=== PATIENT | female | born 1940 | race Caucasian/White ===

== ENCOUNTER 2018-10-12 01:21 | Inpatient (IN) ==
[2018-10-12] MEDS ORDERED: Nitroglycerin 0.4 MG TAB.SUBL SL PRN (04:59)
--- NOTE | 2018-10-12 05:13 | Internal Med History&Physical ---
Date of Encounter: 10/12/18 Time of Encounter: 05:05 Internal Medicine - H&P: HPI Chief complaint: SOB, nausea, vomiting, diarrhea, chest pain History of present illness: Ms. Juarez is a 78 year old female with a past medical history of carotid stenosis, CAD status post PCI, peripheral vascular disease, hypothyroidism, hyperlipidemia, hypertension, COPD on 2 L, psoriasis and GERD who who initially presented to [facility] with a 3 day history of nausea, vomiting diarrhea, shortness of breath and chest pain. Patient states that her symptoms initially began with shortness of breath. She then began having fever, chills, cough and generalized body aches. Symptoms progressed to nausea and vomiting and diarrhea. She states she has had numerous episodes of nonbilious, nonbloody emesis with watery diarrhea. She does report noticing blood on her toilet paper intermittently after bowel movements. Denies any history of hemorrhoids. Patient does not recall when exactly however states that she is also been having intermittent chest pain which he describes as substernal, sharp, nonradiating with no aggravating or alleviating factors. She currently denies any chest pain. Patient received noting dose of aspirin at [facility]. Patient was found to be positive for influenza A and laboratory workup was notable for a mild leukocytosis, Normal Lactic Acid, and a troponin of 0.49 with the second troponin at 0.63. Patient denies any recent syncopal contacts; currently smokes half a pack a day and has been doing so up until this recent illness. She currently lives alone. Review of EKG shows more prominent T-wave in the lateral leads, however, this when compared to previous EKG in 2015. Past Med Surg Social Fam HX - Past Medical History Medical history: other Additional medical history: 2 SPOTS ON HER RIGHT LUNG Psychiatric history: anxiety - Social History Smoking Status: Former smoker Smokeless Tobacco Status: Yes Alcohol use: none Drug use: none Internal Medicine - H&P: Meds Allergy/AdvReac Type Severity Reaction Status Date / Time NSAIDS (Non-Steroidal AdvReac Vomiting Verified 04/29/17 16:45 Anti-Inflamma All Systems PM: A 10-system review of systems was performed and is negative for pertinent findings except as documented above in the HPI. - Constitutional Constitutional: no chills, no fever(s), no night sweats - EENT Eyes: no change in vision, no discharge, no pain, no photophobia Ears: no ear discharge, no ear pain, no tinnitus Nose, mouth and throat: no dysphagia, no nasal discharge, no neck pain, no sore throat - Cardiovascular Cardiovascular ROS IM: no chest pain, no diaphoresis, no dyspnea, no lightheadedness, no palpitations, no syncope - Respiratory Respiratory: no cough, no dyspnea, no wheezing, no excessive phlegm production - Gastrointestinal Gastrointestinal: no abdominal pain, no diarrhea, no hematemesis, no hematochezia, no melena, no nausea, no vomiting - Genitourinary Genitourinary: no change in urinary stream, no dysuria, no flank pain, no hematuria - Musculoskeletal Musculoskeletal ROS IM: no numbness, no tingling - Integumentary Integumentary IM: no rash, no unusual bruising - Neurological Neurological ROS: no confusion, no convulsions, no focal weakness, no numbness, no tingling, no tremor(s) - Hematologic/Lymphatic Hematologic/Lymphatic: no easy bruising - Constitutional Vitals: Temp Pulse Resp BP Pulse Ox 98.8 F 96 17 133/77 96 10/12/18 04:53 10/12/18 04:53 10/12/18 04:53 10/12/18 04:53 10/12/18 04:53 Exam: General: Alert and oriented 3 lying in bed appearing frail and weak Skin:Normal color, no rash, no lesions. HEENT:EOM, pupils equal, round and reactive. Cardiovascular:Normal S1 & S2, no rubs, murmurs or gallops. No JVD. Pulse regular. Lungs:Normal breath sounds, no wheezes or crackles. Abdomen:Soft, non-tender, no rigidity. Extremities:No deformity, no edema or tenderness, no joint swelling or clubbing. Neurological:Normal cognition and motor skills. Pulses:Carotid and radial pulses normal +2. Rest of the physical exam is non contributory Internal Med - H&P Results - Labs CBC & Chem 7: 10/12/18 06:24 10/12/18 06:24 - Assessment and plan (1) Shortness of breath Current Visit: Yes Status: Acute Assessment and plan: Patient presents with progressive shortness of breath associated with fever, chills, cough, nausea, vomiting and diarrhea. Found to have positive influenza infection. Patient has underlying COPD and is on 2 L nasal cannula at night but states that she is had to use it more frequently. Lung sounds on examination were diminished throughout. Did not appreciate any wheezing per se. She does have some conversational dyspnea. Suspect SOB secondary to influenza A plus or minus COPD exacerbation. -Continue supportive oxygen -We will obtain a portable chest x-ray -We will treat for mild COPD exacerbation with DuoNeb's and steroids -Given patient's age, we will treat with Tamiflu for influenza a (2) Nausea vomiting and diarrhea Current Visit: Yes Status: Acute Assessment and plan: Patient reports to numerous to count episodes of vomiting and diarrhea. Suspect likely's associated to her current influenza infection. Symptoms appear to have subsided though patient still remains nauseous. -Anti-emetics -Hydration with normal saline (3) Chest pain Current Visit: Yes Status: Acute Assessment and plan: Patient presents with atypical chest pain described as substernal, sharp, nonradiating, nonreproducible and not positional. Patient has a previous history of coronary artery disease status post PCI in 2008. She has continued to smoke half pack a day up until this point. Initial troponin was 0.49 with repeat troponin is 0.63. I reviewed her EKG which shows more prominent T waves in the lateral leads when compared to previous EKG in 2015. This may or may not be new as we do not have a more recent EKG. Concern for an NSTEMI versus demand ischemia. Patient received loading dose of aspirin at [facility]. Patient cu rrently chest pain-free. We will start patient on heparin drip. -Continue to trend troponin -We will obtain EKG -Echocardiogram -We will start patient on heparin drip due to elevated troponins and EKG changes -Appreciate cardiology input Qualifiers: Ischemic chest pain type: unspecified angina pectoris type Qualified Code(s): I25.9 - Chronic ischemic heart disease, unspecified (4) COPD exacerbation Current Visit: Yes Status: Acute Assessment and plan: Possible mild COPD exacerbation in the setting of influenza A infection. -Duo nebs -Steroids -Will hold Abx for now due to low suspicion of bacterial PNA (5) GI bleed Current Visit: Yes Status: Acute Assessment and plan: Patient reports noting bright red blood on her toilet paper in the setting of this recent bout of diarrhea. Patient denies any history of hemorrhoids. -We will recheck H&H -We will obtain stool occult testing Qualifiers: Gastritis type: unspecified gastritis Qualified Code(s): K29.71 - Gastritis, unspecified, with bleeding (6) Hypertension Current Visit: Yes Status: Acute Assessment and plan: BP stable. Monitor Qualifiers: Qualified Code(s): I10 - Essential (primary) hypertension (7) GERD (gastroesophageal reflux disease) Current Visit: Yes Status: Acute Assessment and plan: Continue with PO PPI Qualifiers: Esophagitis presence: esophagitis presence not specified Qualified Code(s): K21.9 - Gastro-esophageal reflux disease without esophagitis (8) DVT prophylaxis Current Visit: Yes Status: Acute - Time Spent With Patient Total time spent is greater than 50% in coordination of care (as documented) at patient's floor/unit and/or counseling patient:
[2018-10-12] MEDS ORDERED: Ondansetron 4 MG/2 ML VIAL IVP PRN (05:42)
[2018-10-12] MEDS ORDERED: Naloxone 0.4 MG/ML INJ IVP PRN (05:45)
[2018-10-12] MEDS ORDERED: *HR* Heparin 5,000 UNIT/ML VIAL IVP PRN ×2 (05:49)
[2018-10-12] MEDS ORDERED: *HR* Heparin 5,000 UNIT/ML VIAL IVP ONE (05:49)
[2018-10-12] MEDS ORDERED: Heparin 25,000 UNIT/500 ML D5W 25,000 UNIT/500 ML BAG IVC SCH (06:00)
[2018-10-12 06:39] LABS: Basophils % 0.1 %; Eosinophils % 0.1 %; Hematocrit 41.5 % (35.3-44.9); Hemoglobin 14.5 g/dL (11.5-15.4); Immature Granulocytes % 0.5 % (0-4); Lymphocytes # 0.3 K/mcL (0.6-4.6); Mean Corpuscular HGB Conc 34.9 g/dL (31.6-35.5); Mean Corpuscular Hemoglobin 33.1 pg (28.0-33.3); Mean Corpuscular Volume 94.7 fL (83.0-100.0); Mean Platelet Volume 10.9 fL (9.4-12.4); Monocytes # 0.6 K/mcL (0.0-1.3); Monocytes % 3.6 %; Neutrophils # 14.8 K/mcL (1.6-8.9); Platelet Count 153 K/mcL (140-400); Red Blood Count 4.38 M/mcL (3.82-4.97); Red Cell Distribution Width 11.3 % (11.5-14.5); Segmented Neutrophils % 93.7 %
[2018-10-12 06:47] LABS: INR 1.2; Prothrombin Time 13.5 Seconds (9.4-12.1)
[2018-10-12 06:50] LABS: Activated Partial Thrombo Time 32.2 Seconds (26.0-36.0); Activated Partial Thrombo Time 32.8 Seconds (26.0-36.0)
[2018-10-12] MEDS: MethylPREDNISolone 40 MG/ML VIAL IVP SCH ×2 (06:51→12:14)
[2018-10-12] MEDS: 0.9 % Sodium Chloride 1,000 ML IVC SCH ×2 (06:52→18:36)
[2018-10-12 07:03] LABS: Alanine Aminotransferase 21 Units/L (7-52); Albumin 4.1 g/dL (3.5-5.7); Albumin/Globulin Ratio 1.5 (1.1-2.2); Alkaline Phosphatase 81 Units/L (34-104); Aspartate Amino Transferase 42 Units/L (13-39); BUN/Creatinine Ratio 29 (6-26); Bilirubin,Total 0.4 mg/dL (0.3-1.0); Blood Urea Nitrogen 22 mg/dL (8-23); Calcium 9.2 mg/dL (8.6-10.3); Carbon Dioxide 24 mEq/L (23-29); Chloride 96 mEq/L (98-107); Globulin 2.8 g/dL (2.4-3.5); Glucose 153 mg/dL (70-105); Magnesium 1.6 mg/dL (1.6-2.6); Osmolality,Calculated 278 (280-300); Phosphorous 3.8 mg/dL (2.7-4.5); Potassium 3.7 mEq/L (3.5-5.1); Sodium 131 mEq/L (136-145); Total Protein 6.9 g/dL (6.4-8.9); eGFR For Non-African Americans > 60 (> 60)
[2018-10-12 07:11] LABS: Troponin I 0.36 ng/mL (< 0.04)
[2018-10-12] MEDS: Ipratropium/Albuterol Neb 3 ML IH SCH ×5 (07:20→23:38)
[2018-10-12] MEDS ORDERED: Oseltamivir Phosphate 30 MG CAPSULE PO SCH (09:00)
--- NOTE | 2018-10-12 09:49 | Cardiology Consult Note ---
Addendum entered and electronically signed by Austin Sofia MD 10/12/18 11:58: I examined this patient and my medical decision-making was reviewed with the [employer]. I agree with the documented findings, disposition and treatment plan as described except to the extent set forth below. A/P: Influenza Elevated troponin ICH 2017 DC heparin, likely demand ischemia from influenza. Repeat limited TTE. No LHC planned given history of ICH not on asa/plavix. Thank you for the consult and allowing me to care for your patient, Austin Sofia MD [facility] Original Note: Date of Encounter: 10/12/18 Time of Encounter: 09:00 Assessment and Plan (1) Influenza Current Visit: Yes Status: Acute Per cardiology: -Influenza A positive at [facility]. -On tamiflu. -Management per primary service. (2) Elevated troponin Current Visit: Yes Status: Acute Per cardiology: -Troponins 0.49 [facility], 0.63 (reportedly at [facility], however I was unable to locate this result), then 0.36 [facility] in the setting of influenza. -Denies chest pain. -ECG unchanged from previous, no acute ischemic ECG changes. -TTE 02/2015 with LVEF 60-65%, no segmental wall motion abnormalities noted. -Stress 2011 negative for ischemia or infarct. -Known CAD s/p PCI 2008. -ON heparin drip -Had not been on asa or plavix due to intracranial hemorrhage 2016. -TTE pending. -Mild troponin elevation in the setting of influenza, no chest pain. Suspect troponins demand ischemia. No cardiac rehab consult warranted at this time. -Agree with TTE. -Will start home statin, imdur, ranexa, BB. Discussion w patient/family: The assessment and plan as outlined above was discussed with the patient who expressed understanding and agreement. All questions were answered. Thank you for involving us in the care of your patient. Please call with any questions. Discussed and reviewed with . History of Present Illness Consult date: 10/12/18 Requesting physician: Rhett Stevenson Consult reason: elevated troponin Chief complaint: shortness of breath History of present illness: Ms. Juarez is a 78 year old female with a relevant past medical history of CAD s/p PCI 2008, carotid stenosis, PVD, hypothyroidism, HLD, depression, HTN, COPD, peripheral neuropathy, anemia, GERD who presented to [facility] with complaints of increases shortness of breath, vomiting, and diarrhea for 3 days. Patient denies chest pain. Of note, patient also reports one episode of bright red blood per rectum when wiping. Denies recurrence of bleeding. Past Med Surg Social Fam HX - Past Medical History Attestation: Yes The following information was validated with the patient. Source: patient, old records reviewed Medical history: COPD, coronary artery disease, hyperlipidemia, hypertension, other Additional medical history: 2 SPOTS ON HER RIGHT LUNG Psychiatric history: anxiety - Social History Smoking Status: Former smoker Smokeless Tobacco Status: Yes Alcohol use: none Drug use: none Medications and Allergies Allergy/AdvReac Type Severity Reaction Status Date / Time NSAIDS (Non-Steroidal AdvReac Vomiting Verified 04/29/17 16:45 Anti-Inflamma All Systems Review: The remainder of the systems were reviewed and are negative - Cardiovascular Cardiovascular: as per HPI, dyspnea on exertion - Gastrointestinal Gastrointestinal: diarrhea, nausea Physical Examination Vital Signs, Last 4 Hours Temp Pulse Resp BP Pulse Ox 10/12/18 07:20 20 96 10/12/18 07:19 99.0 F 94 16 137/73 95 General: Conversant, No Apparent Distress HEENT: Atraumatic, Normocephaly, Mucus Membranes Moist Neck: No JVD, Normal carotid pulses Cardiac: Reg Rate and Rhythm, Normal S1 and S2, No Murmur Lungs: Other (Lung sounds diminshed throughout. ) Neuro: Alert and responsive, No focal deficits noted Abdomen: Soft, Non-Tender Skin: No rashes noted on visualized skin Musculoskeletal: No Chest Wall Tenderness Extremities: No Clubbing, No Cyanosis, No Edema, Normal Pulses Results 10/12/18 06:24 10/12/18 06:24 Lab Results Impressions Chest X-Ray 10/12/18 05:51 IMPRESSION: 1. No radiographic evidence of acute cardiopulmonary process. 2. Findings suggestive of COPD. 3. Known pulmonary nodules are better seen on comparison CT chest examination. Please refer to the separate report. D/ / Robert Cotton MD / Robert Cotton MD Interpreting Provider: Robert Cotton MD Active Medications Albuterol/Ipratropium (Duoneb) 3 ml IH [id number] [facility] Stop: 04/13/19 08:01 Last Admin: 10/12/18 07:20 Dose: 3 ml Heparin Sodium (Porcine) (Heparin) 2,500 unit 60 unit/kg (2500 unit) IVP Q6HR PRN PRN Reason: SEE COMMENTS Stop: 04/13/19 05:50 Heparin Sodium (Porcine) (Heparin) 1,300 unit 30 unit/kg (1300 unit) IVP Q6H PRN PRN Reason: SEE COMMENTS Stop: 04/13/19 05:50 Sodium Chloride (0.9 % Sodium Chloride) 1,000 mls @ 100 mls/hr IVC .Q10H [facility] Stop: 10/13/18 01:44 Last Admin: 10/12/18 06:52 Dose: 100 mls/hr Heparin Sodium/Dextrose (Heparin 25,000 Unit/500 Ml D5w) 25,000 unit in 500 mls @ 10.056 mls/hr IVC .Q24H [facility]; Protocol Stop: 04/13/19 06:01 Last Admin: 10/12/18 08:03 Dose: 12 unit/kg/hr, 10.056 mls/hr Methylprednisolone (Solu-Medrol) 40 mg IVP Q6HR [facility] Stop: 04/13/19 06:01 Last Admin: 10/12/18 06:51 Dose: 40 mg Naloxone HCl (Narcan) 0.4 mg IVP Q2MIN PRN PRN Reason: SEE COMMENTS Stop: 04/13/19 05:46 Nitroglycerin (Nitroglycerin) 0.4 mg SL Q5MIN PRN PRN Reason: Chest Pain Stop: 04/13/19 05:00 Ondansetron HCl (Zofran) 4 mg IVP Q6H PRN; Protocol PRN Reason: Nausea Stop: 04/13/19 05:43 Oseltamivir Phosphate (Tamiflu) 30 mg PO BID [facility] Stop: 10/16/18 21:01 Laboratory Tests 10/12/18 10/12/18 06:24 06:24 WBC 15.8 H Hgb 14.5 Creatinine 0.76 Troponin I 0.36 H* - Imaging and Cardiology Chest Xray: report reviewed Stress Test: report reviewed Echo: pending, report reviewed - EKG Interpretation EKG results cardiology: personally reviewed (ECG with SR, Right atrial enlargement, HR 94.), other (Telemetry reviewed with average HR previous 12 hours noted to be 96, SR. PVCs noted.) Consult Discharge Plan - Plan Referrals: NONE,PCP [Primary Care Provider] -
--- NOTE | 2018-10-12 11:55 | Internal Med Progress Note ---
Hospitalist Progress Note - Encounter Date of Encounter: 10/12/18 Time of Encounter: 09:00 - Subjective Interval History: Patient still have dry cough with mild shortness of breath. Denies chest pain. No fever. Vitals are stable - Exam Vitals: Temp Pulse Resp BP Pulse Ox 98.9 F 98 18 132/73 99 10/12/18 11:45 10/12/18 11:45 10/12/18 11:45 10/12/18 11:45 10/12/18 11:45 Exam: General: Alert and oriented 3 lying in bed appearing frail and weak Skin:Normal color, no rash, no lesions. HEENT:EOM, pupils equal, round and reactive. Cardiovascular:Normal S1 & S2, no rubs, murmurs or gallops. No JVD. Pulse regular. Lungs:Normal breath sounds, no wheezes or crackles. Abdomen:Soft, non-tender, no rigidity. Extremities:No deformity, no edema or tenderness, no joint swelling or clubbing. Neurological:Normal cognition and motor skills. Pulses:Carotid and radial pulses normal +2. Rest of the physical exam is non contributory - Assessment and Plan (1) Shortness of breath Current Visit: Yes Status: Acute Assessment and Plan: Suspect SOB secondary to influenza A plus or minus COPD exacerbation. -Continue supportive oxygen -chest x-ray negative for pneumonia or pulmonary edema -We will treat for mild COPD exacerbation with DuoNeb's and steroids -Given patient's age, we will treat with Tamiflu for influenza a (2) Nausea vomiting and diarrhea Current Visit: Yes Status: Acute Assessment and Plan: Patient reports to numerous to count episodes of vomiting and diarrhea. Possibly due to influenza. -Anti-emetics -Hydration with normal saline - Resume diet (3) Chest pain Current Visit: Yes Status: Acute Assessment and Plan: Patient presents with atypical chest pain described as substernal, sharp, nonradiating, nonreproducible and not positional. Patient has a previous history of coronary artery disease status post PCI in 2008. She has continued to smoke half pack a day up until this point. Initial troponin was 0.49 with repeat troponin is 0.63. I reviewed her EKG which shows more prominent T waves in the lateral leads when compared to previous EKG in 2015. This may or may not be new as we do not have a more recent EKG. Concern for an NSTEMI versus demand ischemia. Patient received loading dose of aspirin at [facility]. Patient currently chest pain-free. - Remains chest pain-free - Troponin 0.36, trend down from previous 0.63 in [facility] -We will obtain EKG -Echocardiogram - Cardiology consult appreciated, consider demand ischemia, will DC heparin drip. Continue home medication beta anibal, statin. (4) GI bleed Current Visit: Yes Status: Acute Assessment and Plan: Patient reports noting bright red blood on her toilet paper in the setting of this recent bout of diarrhea. Patient denies any history of hemorrhoids. - H&H stable - Will cont closely monitor, if no significant H/H drop, will consider outpatient GI follow up. (5) COPD exacerbation Current Visit: Yes Status: Acute Assessment and Plan: Possible mild COPD exacerbation in the setting of influenza A infection. -Duo nebs -Steroids -Will hold Abx for now due to low suspicion of bacterial PNA (6) Hypertension Current Visit: Yes Status: Acute Assessment and Plan: BP stable. Monitor. (7) GERD (gastroesophageal reflux disease) Current Visit: Yes Status: Acute Assessment and Plan: Continue with PO PPI (8) DVT prophylaxis Current Visit: Yes Status: Acute Assessment and Plan: Heparin SC - Time Spent with Patient Total time spent is greater than 50% in coordination of care (as documented) at patient's floor/unit and/or counseling patient: 30 min 25 - 35 minutes Plan of Care Discussed with: patient Internal Medicine: Result - Labs CBC & Chem 7: 10/12/18 06:24 10/12/18 06:24 Labs: Short CBC 10/12/18 Range/Units 06:24 WBC 15.8 H (4.3-11.1) K/mcL Hgb 14.5 (11.5-15.4) g/dL Hct 41.5 (35.3-44.9) % Plt Count 153 (140-400) K/mcL Neutrophils # 14.8 H (1.6-8.9) K/mcL BMP 10/12/18 06:24 Sodium 131 L Potassium 3.7 Chloride 96 L Carbon Dioxide 24 BUN 22 Creatinine 0.76 Glucose 153 H Calcium 9.2 Cardiac Enzymes 10/12/18 Range/Units 06:24 Troponin I 0.36 H* (< 0.04) ng/mL Liver Function 10/12/18 Range/Units 06:24 Total Bilirubin 0.4 (0.3-1.0) mg/dL AST 42 H (13-39) Units/L ALT 21 (7-52) Units/L Alkaline Phosphatase 81 (34-104) Units/L Albumin 4.1 (3.5-5.7) g/dL - ABG Interpretation ABG results: PT/INR, D-dimer PT 13.5 Seconds (9.4-12.1) H 10/12/18 06:24 - Impressions Impressions Chest X-Ray 10/12/18 05:51 IMPRESSION: 1. No radiographic evidence of acute cardiopulmonary process. 2. Findings suggestive of COPD. 3. Known pulmonary nodules are better seen on comparison CT chest examination. Please refer to the separate report. D/ / Robert Cotton MD / Robert Cotton MD Interpreting Provider: Robert Cotton MD Consult Discharge Plan - Plan Referrals: NONE,PCP [Primary Care Provider] - (3) Chest pain Qualifiers: Ischemic chest pain type: unspecified angina pectoris type Qualified Code(s): I25.9 - Chronic ischemic heart disease, unspecified (4) GI bleed Qualifiers: Gastritis type: unspecified gastritis Qualified Code(s): K29.71 - Gastritis, unspecified, with bleeding (6) Hypertension Qualifiers: Hypertension type: essential hypertension Qualified Code(s): I10 - Essential (primary) hypertension (7) GERD (gastroesophageal reflux disease) Qualifiers: Esophagitis presence: esophagitis presence not specified Qualified Code(s): K21.9 - Gastro-esophageal reflux disease without esophagitis
[2018-10-12] MEDS: Isosorbide MONOnitrate (24 HR) 60 MG TAB.ER.24H PO SCH (12:14)
[2018-10-12] MEDS ORDERED: Perflutren Lipid Microsphere 1.3 ML in 0.9 % Sodium Chloride 8.7 ML IVP ONE (14:54)
[2018-10-12] MEDS ORDERED: *HR* Heparin 5,000 UNIT/ML VIAL SQ SCH (18:00)
[2018-10-12] MEDS: Ranolazine 500 MG TAB.ER.12H PO SCH (20:50)
[2018-10-12] MEDS: traZODone 50 MG TABLET PO PRN (20:50)
[2018-10-13] MEDS: Ipratropium/Albuterol Neb 3 ML IH SCH ×6 (03:33→23:02)
[2018-10-13] MEDS ORDERED: Simethicone 80 MG TAB.CHEW PO PRN (04:52)
[2018-10-13 08:06] LABS: Basophils % 0.1 %; Eosinophils % 0.1 %; Hematocrit 36.2 % (35.3-44.9); Immature Granulocytes % 0.7 % (0-4); Lymphocytes # 0.9 K/mcL (0.6-4.6); Lymphocytes % 6.4 %; Mean Corpuscular HGB Conc 34.8 g/dL (31.6-35.5); Mean Corpuscular Hemoglobin 33.2 pg (28.0-33.3); Mean Corpuscular Volume 95.5 fL (83.0-100.0); Monocytes # 0.8 K/mcL (0.0-1.3); Monocytes % 6.2 %; Neutrophils # 11.7 K/mcL (1.6-8.9); Platelet Count 135 K/mcL (140-400); Red Blood Count 3.79 M/mcL (3.82-4.97); Red Cell Distribution Width 11.7 % (11.5-14.5); Segmented Neutrophils % 86.5 %
[2018-10-13 08:22] LABS: BUN/Creatinine Ratio 44 (6-26); Blood Urea Nitrogen 31 mg/dL (8-23); Calcium 8.1 mg/dL (8.6-10.3); Carbon Dioxide 24 mEq/L (23-29); Chloride 105 mEq/L (98-107); Glucose 110 mg/dL (70-105); Hemoglobin 12.6 g/dL (11.5-15.4); Osmolality,Calculated 289 (280-300); Potassium 4.1 mEq/L (3.5-5.1); Sodium 136 mEq/L (136-145); eGFR For Non-African Americans > 60 (> 60)
[2018-10-13] MEDS: Isosorbide MONOnitrate (24 HR) 60 MG TAB.ER.24H PO SCH (08:34)
[2018-10-13] MEDS: Ranolazine 500 MG TAB.ER.12H PO SCH ×2 (08:34→20:46)
[2018-10-13] MEDS: predniSONE 20 MG TABLET PO SCH (08:35)
--- NOTE | 2018-10-13 11:19 | Cardiology Progress Note ---
Date of Encounter: 10/13/18 Time of Encounter: 08:30 Assessment and Plan (1) Influenza Current Visit: Yes Status: Acute Per cardiology: -Influenza A positive at [place]. -On tamiflu. -Management per primary service. (2) Elevated troponin Current Visit: Yes Status: Acute Per cardiology: -Troponins 0.49 [place], 0.63 (reportedly at [place], however I was unable to locate this result), then 0.36 [facility] in the setting of influenza. -Denies chest pain. -ECG unchanged from previous, no acute ischemic ECG changes. -TTE 02/2015 with LVEF 60-65%, no segmental wall motion abnormalities noted. -TTE this admission with LVEF 70%, mild diastolic dysfunction, moderate mitral annular calcifications, moderate MS, no wall motion abnormalities noted. -Stress 2011 negative for ischemia or infarct. -Known CAD s/p PCI 2008. -Had not been on asa or plavix due to intracranial hemorrhage 2016. -Mild troponin elevation in the setting of influenza, no chest pain. Demand ischemia. No cardiac rehab consult warranted at this time. -Continue home medical management statin, imdur, ranexa, BB. No asa, plavix due to intracranial hemmorhage. Discussion w patient/family: The assessment and plan as outlined above was discussed with the patient who expressed understanding and agreement. All questions were answered. Thank you for involving us in the care of your patient. Please call with any questions. Discussed and reviewed with . Subjective Principal diagnosis: influenza Interval history: Patient states she feels better today. Denies chest pain. Objective Vital Signs, Last 4 Hours Temp Pulse Resp BP Pulse Ox 10/13/18 08:02 97.8 F 83 15 106/68 92 10/13/18 07:36 16 96 General: Conversant, No Apparent Distress HEENT: Atraumatic, Normocephaly, Mucus Membranes Moist Neck: No JVD, Normal carotid pulses Cardiac: Reg Rate and Rhythm, Normal S1 and S2, No Murmur Lungs: Other (Lung sounds diminished throughout. ) Neuro: Alert and responsive, No focal deficits noted Abdomen: Soft, Non-Tender Skin: No rashes noted on visualized skin Musculoskeletal: No Chest Wall Tenderness Extremities: No Clubbing, No Cyanosis, No Edema, Normal Pulses Results 10/13/18 07:56 10/13/18 07:56 Lab Results Impressions Echocardiogram 10/12/18 05:00 Impressions: LVEF 70%. Normal LV chamber size, wall thickness and function. Mild left ventricular diastolic dysfunction. Normal right ventricular structure and function. Moderate mitral annular calcification. Moderate mitral stenosis. Mean gradient 8 mmHg (HR 98 bpm). No evidence of pulmonary hypertension. Left Ventricular Wall Motion: Rest Echo Findings All wall segments showed normal motion. Findings: Study Quality * Technically sub-optimal due to poor echocardiographic windows. ECG Findings * Normal sinus rhythm. Left Ventricle * LVEF 70%. * Normal LV chamber size, wall thickness and function. * Mild left ventricular diastolic dysfunction. Right Ventricle * Normal right ventricular structure and function. Left Atrium * Normal left atrial size. Right Atrium * Normal right atrial size. Mitral Valve * Moderate mitral annular calcification. * Moderate mitral stenosis. Mean gradient 8 mmHg (HR 98 bpm). * No mitral regurgitation. Tricuspid Valve * Normal tricuspid valve structure and function. * Trace tricuspid regurgitation. * No evidence of pulmonary hypertension. Pulmonic Valve * Pulmonic valve not well visualized. Aorta * Normally sized aortic root. Pericardium * The pericardium appears normal. IVC * Normal IVC dimensions and inspiratory collapse. Pulmonary Artery * Pulmonary artery not well visualized. Active Medications Albuterol/Ipratropium (Duoneb) 3 ml IH [id number] [facility] Stop: 04/13/19 08:01 Last Admin: 10/13/18 07:36 Dose: 3 ml Isosorbide Mononitrate (Imdur) 60 mg PO DAILY [facility] Stop: 04/13/19 10:09 Last Admin: 10/13/18 08:34 Dose: 60 mg Metoprolol Tartrate (Lopressor) 25 mg PO BID [facility] Stop: 04/13/19 21:01 Last Admin: 10/13/18 08:38 Dose: Not Given Naloxone HCl (Narcan) 0.4 mg IVP Q2MIN PRN PRN Reason: SEE COMMENTS Stop: 04/13/19 05:46 Nitroglycerin (Nitroglycerin) 0.4 mg SL Q5MIN PRN PRN Reason: Chest Pain Stop: 04/13/19 05:00 Ondansetron HCl (Zofran) 4 mg IVP Q6H PRN; Protocol PRN Reason: Nausea Stop: 04/13/19 05:43 Oseltamivir Phosphate (Tamiflu) 75 mg PO BID [facility] Stop: 10/16/18 21:01 Last Admin: 10/13/18 08:35 Dose: 75 mg Prednisone (Prednisone) 40 mg PO DAILY [facility] Stop: 04/14/19 09:01 Last Admin: 10/13/18 08:35 Dose: 40 mg Ranolazine (Ranexa) 500 mg PO BID [facility] Stop: 04/13/19 21:01 Last Admin: 10/13/18 08:34 Dose: 500 mg Rosuvastatin Calcium (Crestor) 20 mg PO HS [facility] Stop: 04/13/19 21:01 Last Admin: 10/12/18 20:50 Dose: 20 mg Simethicone (Gas-X) 80 mg PO TID PRN PRN Reason: Dyspepsia Stop: 04/14/19 04:53 Last Admin: 10/13/18 05:49 Dose: 80 mg Trazodone HCl (Trazodone) 25 mg PO HS PRN PRN Reason: Insomnia Stop: 04/13/19 19:24 Last Admin: 10/12/18 20:50 Dose: 25 mg - Imaging and Cardiology Chest Xray: report reviewed Echo: report reviewed - EKG Interpretation EKG results cardiology: other (Telemetry reveiwed with average HR previous 12 hours noted to be 82, SR. PACs noted.) Consult Discharge Plan - Plan Referrals: NONE,PCP [Primary Care Provider] -
--- NOTE | 2018-10-13 11:56 | Internal Med Progress Note ---
Hospitalist Progress Note - Encounter Date of Encounter: 10/13/18 Time of Encounter: 09:00 - Subjective Interval History: Patient feels better, less SOB, still mild cough. Denies chest pain. No fever. Vitals are stable - Exam Vitals: Temp Pulse Resp BP Pulse Ox 98.1 F 77 18 99/59 99 10/13/18 11:28 10/13/18 11:28 10/13/18 11:28 10/13/18 11:28 10/13/18 11:28 Exam: General: Alert and oriented 3 lying in bed appearing frail and weak Skin:Normal color, no rash, no lesions. HEENT:EOM, pupils equal, round and reactive. Cardiovascular:Normal S1 & S2, no rubs, murmurs or gallops. No JVD. Pulse regular. Lungs:Mild coarse breath sound on right side, no wheezes or crackles. Abdomen:Soft, non-tender, no rigidity. Extremities:No deformity, no edema or tenderness, no joint swelling or clubbing. Neurological:Normal cognition and motor skills. Pulses:Carotid and radial pulses normal +2. Rest of the physical exam is non contributory - Assessment and Plan (1) Shortness of breath Current Visit: Yes Status: Acute Assessment and Plan: Suspect SOB secondary to influenza A plus or minus COPD exacerbation. -Continue supportive oxygen -chest x-ray negative for pneumonia or pulmonary edema -We will treat for mild COPD exacerbation with DuoNeb's and steroids -Given patient's age, we will treat with Tamiflu for influenza A (2) Nausea vomiting and diarrhea Current Visit: Yes Status: Acute Assessment and Plan: Patient reports to numerous to count episodes of vomiting and diarrhea. Possibly due to influenza. -Anti-emetics -Hydration with normal saline - Resume diet - Symptoms improved. (3) Chest pain Current Visit: Yes Status: Acute Assessment and Plan: Patient presents with atypical chest pain described as substernal, sharp, nonradiating, nonreproducible and not positional. Patient has a previous history of coronary artery disease status post PCI in 2008. She has continued to smoke half pack a day up until this point. Initial troponin was 0.49 with repeat troponin is 0.63. I reviewed her EKG which shows more prominent T waves in the lateral leads when compared to previous EKG in 2015. This may or may not be new as we do not have a more recent EKG. Concern for an NSTEMI versus demand ischemia. Patient received loading dose of aspirin at [facility]. Patient currently chest pain-free. - Remains chest pain-free - Troponin 0.36, trend down from previous 0.63 in [place] -We will obtain EKG -Echocardiogram - Cardiology consult appreciated, consider demand ischemia, will DC heparin drip. Continue home medication beta anibal, statin, imdor. No antiplatelet b/o hx of intracranial hemorrhage. - Patient has no further chest pain (4) GI bleed Current Visit: Yes Status: Acute Assessment and Plan: Patient reports noting bright red blood on her toilet paper in the setting of this recent bout of diarrhea. Patient denies any history of hemorrhoids. - H&H stable, mild decrease which is considered dilutional - Will cont closely monitor, if no significant H/H drop, will consider outpatient GI follow up. (5) COPD exacerbation Current Visit: Yes Status: Acute Assessment and Plan: Possible mild COPD exacerbation in the setting of influenza A infection. -Duo nebs -Steroids -Will hold Abx for now due to low suspicion of bacterial PNA (6) Hypertension Current Visit: Yes Status: Acute Assessment and Plan: BP stable. Monitor. (7) GERD (gastroesophageal reflux disease) Current Visit: Yes Status: Acute Assessment and Plan: Continue with PO PPI (8) DVT prophylaxis Current Visit: Yes Status: Acute Assessment and Plan: EPCDs - Time Spent with Patient Total time spent is greater than 50% in coordination of care (as documented) at patient's floor/unit and/or counseling patient: 25 - 35 minutes Plan of Care Discussed with: patient Internal Medicine: Result - Labs CBC & Chem 7: 10/13/18 07:56 10/13/18 07:56 Labs: Short CBC 10/13/18 Range/Units 07:56 WBC 13.5 H (4.3-11.1) K/mcL Hgb 12.6 D (11.5-15.4) g/dL Hct 36.2 (35.3-44.9) % Plt Count 135 L (140-400) K/mcL Neutrophils # 11.7 H (1.6-8.9) K/mcL BMP 10/13/18 07:56 Sodium 136 Potassium 4.1 Chloride 105 Carbon Dioxide 24 BUN 31 H Creatinine 0.70 Glucose 110 H Calcium 8.1 L - ABG Interpretation ABG results: PT/INR, D-dimer PT 13.5 Seconds (9.4-12.1) H 10/12/18 06:24 - Impressions Impressions Echocardiogram 10/12/18 05:00 Impressions: LVEF 70%. Normal LV chamber size, wall thickness and function. Mild left ventricular diastolic dysfunction. Normal right ventricular structure and function. Moderate mitral annular calcification. Moderate mitral stenosis. Mean gradient 8 mmHg (HR 98 bpm). No evidence of pulmonary hypertension. Left Ventricular Wall Motion: Rest Echo Findings All wall segments showed normal motion. Findings: Study Quality * Technically sub-optimal due to poor echocardiographic windows. ECG Findings * Normal sinus rhythm. Left Ventricle * LVEF 70%. * Normal LV chamber size, wall thickness and function. * Mild left ventricular diastolic dysfunction. Right Ventricle * Normal right ventricular structure and function. Left Atrium * Normal left atrial size. Right Atrium * Normal right atrial size. Mitral Valve * Moderate mitral annular calcification. * Moderate mitral stenosis. Mean gradient 8 mmHg (HR 98 bpm). * No mitral regurgitation. Tricuspid Valve * Normal tricuspid valve structure and function. * Trace tricuspid regurgitation. * No evidence of pulmonary hypertension. Pulmonic Valve * Pulmonic valve not well visualized. Aorta * Normally sized aortic root. Pericardium * The pericardium appears normal. IVC * Normal IVC dimensions and inspiratory collapse. Pulmonary Artery * Pulmonary artery not well visualized. Consult Discharge Plan - Plan Referrals: NONE,PCP [Primary Care Provider] - (3) Chest pain Qualifiers: Ischemic chest pain type: unspecified angina pectoris type Qualified Code(s): I25.9 - Chronic ischemic heart disease, unspecified (4) GI bleed Qualifiers: Gastritis type: unspecified gastritis Qualified Code(s): K29.71 - Gastritis, unspecified, with bleeding (6) Hypertension Qualifiers: Hypertension type: essential hypertension Qualified Code(s): I10 - Essential (primary) hypertension (7) GERD (gastroesophageal reflux disease) Qualifiers: Esophagitis presence: esophagitis presence not specified Qualified Code(s): K21.9 - Gastro-esophageal reflux disease without esophagitis
[2018-10-13] MEDS: traZODone 50 MG TABLET PO PRN (20:46)
[2018-10-14] MEDS: Ipratropium/Albuterol Neb 3 ML IH SCH ×3 (04:02→11:18)
[2018-10-14 05:40] LABS: Basophils % 0.1 %; Hematocrit 32.4 % (35.3-44.9); Hemoglobin 11.2 g/dL (11.5-15.4); Immature Granulocytes % 0.4 % (0-4); Lymphocytes # 1.1 K/mcL (0.6-4.6); Mean Corpuscular HGB Conc 34.6 g/dL (31.6-35.5); Mean Corpuscular Hemoglobin 33.4 pg (28.0-33.3); Mean Corpuscular Volume 96.7 fL (83.0-100.0); Mean Platelet Volume 10.9 fL (9.4-12.4); Monocytes # 0.7 K/mcL (0.0-1.3); Monocytes % 7.1 %; Neutrophils # 7.4 K/mcL (1.6-8.9); Platelet Count 130 K/mcL (140-400); Red Blood Count 3.35 M/mcL (3.82-4.97); Red Cell Distribution Width 11.7 % (11.5-14.5); Segmented Neutrophils % 80.4 %
[2018-10-14 06:02] LABS: BUN/Creatinine Ratio 46 (6-26); Blood Urea Nitrogen 29 mg/dL (8-23); Calcium 8.5 mg/dL (8.6-10.3); Carbon Dioxide 26 mEq/L (23-29); Chloride 104 mEq/L (98-107); Glucose 96 mg/dL (70-105); Osmolality,Calculated 286 (280-300); Potassium 3.8 mEq/L (3.5-5.1); Sodium 135 mEq/L (136-145); eGFR For Non-African Americans > 60 (> 60)
[2018-10-14 06:11] LABS: Platelet Estimate Slight Decrease (Normal); Reactive Lymphocytes Present (Not Present)
[2018-10-14] MEDS: Ranolazine 500 MG TAB.ER.12H PO SCH (09:35)
[2018-10-14] MEDS: predniSONE 20 MG TABLET PO SCH (09:35)
[2018-10-14] MEDS: Isosorbide MONOnitrate (24 HR) 60 MG TAB.ER.24H PO SCH (09:35)
[2018-10-14 10:45] VITALS: BP 153/71
--- NOTE | 2018-10-14 12:11 | Discharge Summary ---
- NOTES TO OUTPATIENT PROVIDER Notes to Outpatient Provider: 1. New meds metoprolol po 25mg bid added per cardio recommendation, please f/u with her BP and HR. 2. Pt c/o once blood in toilet papar when she has diarrhea, now stopped, please cont watch/follow up as outpatient. Date of Encounter: 10/14/18 Time of Encounter: 10:00 - Discharge Diagnosis (1) Shortness of breath Priority: Primary Status: Acute (2) Nausea vomiting and diarrhea Priority: Primary Status: Acute (3) Chest pain Priority: Primary Status: Acute Qualifiers: Ischemic chest pain type: unspecified angina pectoris type Qualified Code(s): I25.9 - Chronic ischemic heart disease, unspecified (4) GI bleed Priority: Secondary Status: Acute Qualifiers: Gastritis type: unspecified gastritis Qualified Code(s): K29.71 - Gastritis, unspecified, with bleeding (5) COPD exacerbation Priority: Primary Status: Acute (6) Hypertension Priority: Secondary Status: Acute Qualifiers: Hypertension type: essential hypertension Qualified Code(s): I10 - Essential (primary) hypertension (7) GERD (gastroesophageal reflux disease) Priority: Secondary Status: Acute Qualifiers: Esophagitis presence: esophagitis presence not specified Qualified Code(s): K21.9 - Gastro-esophageal reflux disease without esophagitis (8) DVT prophylaxis Priority: Secondary Status: Acute Hospital course: Ms. Juarez is a 78 year old female present to ER for chest pain, nausea vomiting diarrhea and difficulty breathing. Patient was found influenza positive and elevated troponin. Patient was considered COPD exacerbation and flu. Patient was treated with Tamiflu, steroid, and bronchodilator. Cardiology consult was called for elevated troponin, consider demand ischemia, recommend continue conservative treatment. After treatment, patient feels much better, shortness of breasts go back to her baseline, no wheezing. Patient has no further chest pain, nausea, or diarrhea. Patient noticed blood in toilet paper when she has diarrhea but stopped now. Patient has stable vitals and hemoglobin level, will defer further monitoring, test to PCP as outpatient. Will DC patient home today. Patient has home oxygen already. I have seen and examined patient today. Feels fine. Shortness of breath is at baseline. Vitals are stable. Will DC home on by mouth Tamiflu and taped down steroids. Discharge discussed with: patient - Time Spent with Patient Total time spent providing and/or coordinating discharge services: 40 min Greater than 30 minutes - Discharge Medications Prescriptions: Metoprolol [Lopressor] 25 mg PO BID 30 Days #60 tablet Omeprazole [PriLOSEC] 40 mg PO DAILY@0730 30 Days #60 capsule. predniSONE [PredniSONE] See Taper PO DAILY 9 Days #12 tablet Home Medications: Albuterol Neb [Proventil Neb] 2.5 mg IH Q8H PRN 10/13/18 [History] Budesonide/Formoterol 160/4.5 [Symbicort 160/4.5] 2 puff IH BIDR 10/13/18 [History] Butalbital/Aspirin/Caffeine [Fiorinal 50-325-40 mg Capsule] 1 cap PO DAILY PRN 10/13/18 [History] Citalopram [CeleXA] 20 mg PO DAILY 10/13/18 [History] Ferrous Sulfate [Slow Fe] 142 mg PO DAILY 10/13/18 [History] Gabapentin [Neurontin] 300 mg PO TID 10/13/18 [History] Isosorbide MONOnitrate [Isosorbide Mononitrate ER] 30 mg PO DAILY 10/13/18 [History] Meclizine [Antivert] 25 mg PO BID PRN 10/13/18 [History] Nitroglycerin [Nitrostat] 0.4 mg SL Q5M PRN 10/13/18 [History] Nystatin [Nystatin Suspension] 100,000 units PO QID 10/13/18 [History] Ranolazine [Ranexa] 500 mg PO BID 10/13/18 [History] Rosuvastatin [Crestor] 20 mg PO HS 10/13/18 [History] Tiotropium [Spiriva] 18 mcg IH DAILY 10/13/18 [History] Tramadol HCl [Ultram] 50 mg PO BID PRN 10/13/18 [History] traZODone [TraZODone] 150 mg PO HS PRN 10/13/18 [History] Metoprolol [Lopressor] 25 mg PO BID 30 Days #60 tablet 10/14/18 [Rx] Omeprazole [PriLOSEC] 40 mg PO DAILY@0730 30 Days #60 capsule. 10/14/18 [Rx] Oseltamivir [Tamiflu] 75 mg PO BID 3 Days #5 capsule 10/14/18 [Rx] predniSONE [PredniSONE] See Taper PO DAILY 9 Days #12 tablet 10/14/18 [Rx] Allergies/Adverse Reactions: Allergy/AdvReac Type Severity Reaction Status Date / Time NSAIDS (Non-Steroidal AdvReac Vomiting Verified 04/29/17 16:45 Anti-Inflamma Date of admission: 10/12/18 05:45 Primary care physician: PCP NONE Consults: 10/12/18 05:39 Consult to Cardiology [CONS] Routine Comment: Consulting Provider: Cardiology [place] Reason for Consult: Elevated troponin in the setting of positive influenza A with some EKG changes Call Completed: No 10/12/18 06:02 Consult to Nutrition [CONS] Routine Comment: Consulting Provider: NUTRITION Reason for Dietary Consult: MST Score 10/13/18 14:40 Consult to Nurse Navigator [CONS] Routine Comment: copd Discharging clinician: Deedee Mckeon Anticipated date of discharge: 10/14/18 - Constitutional Vitals: Temp Pulse Resp BP Pulse Ox 98.9 F 74 16 153/71 98 10/14/18 10:38 10/14/18 10:38 10/14/18 10:38 10/14/18 10:38 10/14/18 10:38 Exam: General: Alert and oriented 3 lying in bed appearing frail and weak Skin:Normal color, no rash, no lesions. HEENT:EOM, pupils equal, round and reactive. Cardiovascular:Normal S1 & S2, no rubs, murmurs or gallops. No JVD. Pulse regular. Lungs:CTA b/l, no wheezes or crackles. Abdomen:Soft, non-tender, no rigidity. Extremities:No deformity, no edema or tenderness, no joint swelling or clubbing. Neurological:Normal cognition and motor skills. Pulses:Carotid and radial pulses normal +2. Rest of the physical exam is non contributory - Patient Status Disposition: Home, Self-Care Condition: Good Functional capacity at discharge: uses cane/walker Overall status at discharge: patient is back to baseline - Discharge Instructions Follow Up With: NONE,PCP [Primary Care Provider] - - Diet and Activity Activity: increase activity as tolerated Diet: advance to your usual diet, low fat, low cholesterol, low salt diet
== END 2018-10-14 15:01 | disposition home or self-care (01) | DRG 193 ==
LOC: 2ANU
PROVIDERS: ADMIT Internal Medicine; ATTEND Internal Medicine